=== PATIENT | female | born 1980 | race Hispanic/Latino ===

== ENCOUNTER 2020-03-28 10:25 | Outpatient (CLI) | payer BC, SELFPAY ==
--- NOTE | ~2020-03-28 | US_ITS ---
EXAMINATION: US thyroid EXAM DATE: 03/28/2020 11:19 INDICATION: Nontoxic goiter. TECHNIQUE: Multiple grayscale and Doppler images of the thyroid were obtained (by a technologist who performed the scan) and subsequently reviewed. Individual nodules and recommendations may be reporte d in accordance with TI-RADS system as designated by the 2017 ACR White Paper TI-RADS committee. The re is no prior study for comparison. FINDINGS: The right thyroid lobe measures 3.5 x 1.1 x 0.8 cm, the left measuring 3.9 x 1.2 x 0.9 cm. Mildly dif fusely heterogeneous thyroid echogenicity with expected amount of vascularity. No focal nodule is aguilar ntified or adjacent lymphadenopathy. IMPRESSION: 1. Heterogeneous thyroid parenchyma with normal size. Reviewed, dictated and finalized at location B. 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
== END 2020-03-28 10:26 | disposition home or self-care (01) ==
LOC: ANHIMG 10:44
PROVIDERS: PCP Physician Assistant; Visit Provider Physician Assistant
DX: E04.9 Nontoxic goiter, unspecified (principal)
CPT/HCPCS: 76536

== ENCOUNTER 2020-12-13 14:14 | Emergency (ER) | payer BC, SELFPAY ==
[2020-12-13] VITALS (7 sets, daily range): BP systolic 104–117; BP diastolic 66–74; PULSE 54–80; RESP 13–52; TEMP 36.3; O2SAT 98–100
--- NOTE | ~2020-12-13 | XR_ITS ---
EXAMINATION: XR chest 2V DATE: 12/13/2020 14:52 INDICATION: Chest pain TECHNIQUE: PA and lateral views of the chest are obtained. COMPARISON: None available FINDINGS: The lungs are free of acute opacities. There is no pleural effusion or pneumothorax. The ca rdiomediastinal silhouette is normal. There is mild thoracic spondylosis. Surgical clips in the right upper quadrant are likely from prior cholecystectomy. IMPRESSION: 1. No acute cardiopulmonary abnormality. Reviewed, dictated and finalized at location A.
--- NOTE | 2020-12-13 14:20 | ECG_ITS ---
Measurements Intervals [place] Rate: 63 P: 42 [place]: 140 QRS: 44 QRSD: 77 T: 47 QT: 402 QTc: 412 Interpretive Statements SINUS RHYTHM BASELINE WANDER- V3-V4 NORMAL ECG Electronically Signed On 12-13-2020 14:46:10 CDT by Logan Arriola D.O.
[2020-12-13 14:53] LABS: Basophils Percent Auto 0.5 % (0.2-1.2); Eosinophils Absolute Auto 0.1 K/mm3 (0-0.3); Eosinophils Percent Auto 1.4 % (0-4.4); Hematocrit 32.5 % (37.0-47.0); Hemoglobin 10.7 g/dL (12.0-15.0); Immature Granulocyte Absolute 0.03 K/mm3 (0.00-0.031); Immature Granulocyte Percent A 0.4 % (0-0.5); Lymphocytes Absolute Auto 2.31 K/mm3 (0.9-3.2); Lymphocytes Percent Auto 28.7 % (18.3-44.2); Mean Corpuscular HGB Conc 32.9 g/dl (32-36); Mean Corpuscular Hemoglobin 27.6 pg (26-34); Mean Corpuscular Volume 83.8 fl (80-100); Mean Platelet Volume 9.4 fl (7.4-10.4); Monocytes Absolute Auto 0.4 K/mm3 (0.1-0.6); Monocytes Percent Auto 5.5 % (2.6-8.5); Neutrophils Absolute Auto 5.1 K/mm3 (1.3-6.7); Neutrophils Percent Auto 63.5 % (45.5-73.1); Platelet Count Result 487 k/mm3 (150-375); Red Blood Count 3.88 M/mm3 (4.2-5.4); Red Cell Distribution Width 13.6 % (11.5-14.5); White Blood Count 8.1 K/mm3 (4.5-10.0)
[2020-12-13 14:59] LABS: Anion Gap 4 mmol/L (8-16); Blood Urea Nitrogen 16 mg/dL (7-17); Calcium 9.1 mg/dL (8.4-10.2); Carbon Dioxide 24 mmol/L (22-30); Chloride 105 mmol/L (98-107); Estimated CRCL calculation 85 ml/min; Estimated Glomerular Filt Rate > 60; Glucose 98 mg/dL (65-110); Potassium 3.6 mmol/L (3.4-5.0); Sodium 133 mmol/L (137-145)
[2020-12-13 15:04] LABS: INR 0.9; Partial Thromboplastin Time 28.6 SECONDS (22.3-36.8); Prothrombin Time 12.5 Seconds (11.1-14.7)
[2020-12-13 15:16] LABS: Troponin I < 0.012 ng/mL (0.000-0.034)
--- NOTE | 2020-12-13 18:35 | ED.CHESTPAIN ---
HPI - Chest Pain General Chief Complaint: Chest Pain Stated Complaint: cp, sob Time Seen by Provider: 12/13/20 17:23 Source: patient Mode of arrival: ambulatory Limitations: language barrier (Estonian-speaking translation line used) History of Present Illness HPI narrative: Patient with history of thyroid disorder, joint pain and suspected autoimmune disease presenting complaining of chest pain. After further investigation patient is having pain to her chest wall, elbows, knees etc. Patient states that she is being evaluated by her doctor for lupus or other autoimmune disease. Patient states she has been prescribed meloxicam for her symptoms. Patient has not had fever, chills, nausea, vomiting, diarrhea, syncope or palpitations. Patient's pain can be elicited with palpation of these areas. Patient is not short of breath was noticed that the pain to her chest was worsening when she takes breaths. Patient denies smoking. Patient denies calf pain or swelling. Patient has been on oral control pills. Patient states that she needs a work note as she got off work today. Related Data Allergies Allergy/AdvReac Type Severity Reaction Status Date / Time No Known Allergies Allergy Verified 12/13/20 18:08 Review of Systems Review of Systems: CONSTITUTIONAL: Denies fever, chills, or sweats. EYES: Denies visual changes, redness, or discharge. ENT: Denies rhinorrhea, congestion, sore throat, or otalgia. CARDIOVASCULAR: Reports chest wall pain denies palpitations, or edema. RESPIRATORY: Denies cough or dyspnea. GASTROINTESTINAL: Denies abdominal pain, nausea, vomiting, or diarrhea. GENITOURINARY: Denies dysuria or hematuria. SKIN: Denies rash or itching. MUSCULOSKELETAL: Reports joint pain denies back pain or myalgia. NEUROLOGIC: Denies headache, numbness, dizziness, or weakness. PSYCHIATRIC: Denies anxiety or depression. Exam Narrative: GENERAL: Well-appearing, well-nourished, and in no acute distress. HEAD: Normocephalic, atraumatic. EYES: PERRLA and EOMI. ENT: Nares clear, no rhinorrhea or epistaxis. Mucous membranes moist. Oropharynx without tonsillar hypertrophy exudate or other lesions. Bilateral TMs pearly garcia nonbulging NECK: Supple. No adenopathy or masses. CHEST: pain reproducible with palpation of chest wall. Clear to auscultation. No respiratory distress. No wheezes rales or rhonchi HEART: Regular rate and rhythm. No murmur heard. Normal peripheral pulses. EXTREMITIES: Normal range of motion. No erythema or increased warmth to joints. No calf tenderness or swelling. No edema. SKIN: Warm, dry, no rash. NEURO: No focal deficits. Alert and oriented x3. PSYCH: Normal mood and affect. Course Vital Signs Vital signs: Vital Signs Temperature 97.4 F L 12/13/20 14:21 Pulse Rate 66 12/13/20 14:21 Respiratory Rate 20 12/13/20 14:21 Blood Pressure 117/74 12/13/20 14:21 Pulse Oximetry 100 12/13/20 14:21 Temperature 97.4 F L 12/13/20 14:21 Pulse Rate 70 12/13/20 18:15 Respiratory Rate 19 12/13/20 18:15 Blood Pressure 104/66 12/13/20 18:13 Pulse Oximetry 98 12/13/20 18:15 MDM - Chest Pain MDM Narrative Medical decision making narrative: Patient is not having cardiac chest pain. Patient is having chest wall tenderness. Patient is under investigation for autoimmune conditions. Patient has meloxicam prescribed and states that her pain is the same as in the previous however just intensified. Patient's troponin was negative. Patient EKG was normal. Patient does not want to stay for delta troponin. Patient would like work note and to be discharged home. Patient vitals are stable and blood work is appropriate for discharge. Lab Data Result diagrams: 12/13/20 14:34 12/13/20 14:34 Labs: Lab Results 12/13/20 12/13/20 12/13/20 Range/Units 14:34 14:34 14:34 WBC 8.1 (4.5-10.0) K/mm3 RBC 3.88 L (4.2-5.4) M/mm3 Hgb 10.7 L (12.0-15.0) g/dL Hct
== END 2020-12-13 19:09 | disposition home or self-care (01) ==
PROVIDERS: Emergency Medicine; Emergency Provider Emergency Medicine; PCP Physician Assistant
DX: R07.89 Other chest pain (principal); M25.522 Pain in left elbow; M25.521 Pain in right elbow; M25.562 Pain in left knee; M25.561 Pain in right knee; E07.9 Disorder of thyroid, unspecified
CPT/HCPCS: 36415; 71046; 80048; 84484; 85025; 85610; 85730; 93005; 99284

== ENCOUNTER 2021-01-31 13:01 | Emergency (ER) | payer BC, SELFPAY ==
[2021-01-31 13:25] VITALS: BP 121/80; PULSE 70; RESP 16; TEMP 37.6; O2SAT 99
--- NOTE | 2021-01-31 14:55 | ED.GENADULT ---
HPI - General Adult General Chief complaint: Upper Respiratory Infection Stated complaint: wants COVID swab Time Seen by Provider: 01/31/21 13:38 Source: patient Mode of arrival: ambulatory Limitations: language barrier (language translation line used) History of Present Illness HPI narrative: Patient presents complaining of dry cough, headache, body aches, chills over the past 2 days. Patient reports that she has been vaccinated with Pfizer. She however reports that she has had 4 close contacts at work become Covid positive and other people at work are becoming ill as well. Patient reports that her daughter as well as her granddaughters have developed the same symptoms as her. Patient reports that she saw her primary care provider today and they directed him to the emergency department to be tested for Covid. Patient denies nausea, vomiting, chest pain, shortness of breath, syncope or any other emergent symptoms. Patient reports she has been taking Tylenol and honey cough syrup for her symptoms. Related Data Home Medications Medication Instructions Recorded Confirmed duloxetine mg PO 01/31/21 01/31/21 levothyroxine [Euthyrox] 01/31/21 tramadol mg 01/31/21 Allergies Allergy/AdvReac Type Severity Reaction Status Date / Time No Known Allergies Allergy Verified 01/31/21 13:44 Review of Systems Review of Systems: CONSTITUTIONAL: Reports body aches chills Denies fever or sweats. EYES: Denies visual changes, redness, or discharge. ENT: Reports rhinorrhea, congestion, sore throat denies otalgia. CARDIOVASCULAR: Denies chest pain, palpitations, or edema. RESPIRATORY: Reports dry cough denies dyspnea. GASTROINTESTINAL: Denies abdominal pain, nausea, vomiting, or diarrhea. GENITOURINARY: Denies dysuria or hematuria. SKIN: Denies rash or itching. MUSCULOSKELETAL: Denies back pain, myalgia, or joint pain NEUROLOGIC: Reports headache Denies numbness, dizziness, or weakness. PSYCHIATRIC: Denies anxiety or depression. Exam Narrative: GENERAL: Well-appearing, well-nourished.No toxic. HEAD: Normocephalic, atraumatic. EYES: PERRLA and EOMI. ENT: No epistaxis. Bilateral TMs pearly garcia nonbulging NECK: Supple. No adenopathy or masses. No vertebral tenderness or loss of ROM. CHEST: Clear to auscultation. No respiratory distress. No wheezes rales or rhonchi. Dry cough noted during exam. Not tachypnic. HEART: Regular rate and rhythm. Normal peripheral pulses. ABDOMEN: Soft, nondistended, normal active bowel sounds. EXTREMITIES: No acute changes in ROM. No edema. SKIN: Warm, dry, no rash. NEURO: No focal deficits. Alert and oriented x3. PSYCH: Normal mood and affect. Course Vital Signs Vital signs: Vital Signs Temperature 99.6 F 01/31/21 13:25 Pulse Rate 70 01/31/21 13:25 Respiratory Rate 16 01/31/21 13:25 Blood Pressure 121/80 01/31/21 13:25 Pulse Oximetry 99 01/31/21 13:25 Temperature 99.6 F 01/31/21 13:25 Pulse Rate 70 01/31/21 13:25 Respiratory Rate 16 01/31/21 13:25 Blood Pressure 121/80 01/31/21 13:25 Pulse Oximetry 99 01/31/21 13:25 Medical Decision Making MDM Narrative Medical decision making narrative: Discussed Covid PUI discharge instructions. Discussed return emergency department instructions. Patient is not toxic is not hypoxic. Patient's vital signs are stable. Patient discharged home. Vital Signs Vital Signs: Vital Signs Temperature 99.6 F 01/31/21 13:25 Pulse Rate 70 01/31/21 13:25 Respiratory Rate 16 01/31/21 13:25 Blood Pressure 121/80 01/31/21 13:25 Pulse Oximetry 99 01/31/21 13:25 Temperature 99.6 F 01/31/21 13:25 Pulse Rate 70 01/31/21 13:25 Respiratory Rate 16 01/31/21 13:25 Blood Pressure 121/80 01/31/21 13:25 Pulse Oximetry 99 01/31/21 13:25 Lab Data Labs: Lab Results 01/31/21 Range/Units 14:36 SARS-CoV-2 RNA (RT-PCR) Pending Discharge Plan Discharge Clinical Impression: Viral infe
[2021-01-31 15:11] VITALS: BP 115/68; PULSE 78; RESP 15; O2SAT 97
[2021-02-01 17:24] LABS: SARS-CoV-2 RNA PCR Positive
== END 2021-01-31 15:12 | disposition home or self-care (01) ==
LOC: ANHED 14:54
PROVIDERS: Physician Assistant; Emergency Provider Emergency Medicine; PCP Physician Assistant
DX: U07.1 COVID-19 (principal)
CPT/HCPCS: 99283; C9803; U0003; U0005

== ENCOUNTER 2021-08-28 17:51 | Emergency (ER) | payer BC, SELFPAY ==
[2021-08-28 18:53] VITALS: BP 110/86; PULSE 79; RESP 16; TEMP 36.2; O2SAT 100
--- NOTE | 2021-08-28 19:00 | ECG_ITS ---
Measurements Intervals [place] Rate: 73 P: 21 [place]: 152 QRS: 22 QRSD: 85 T: 30 QT: 398 QTc: 440 Interpretive Statements SINUS RHYTHM NO PREVIOUS ECG AVAILABLE FOR COMPARISON Electronically Signed On 08-28-2021 21:44:46 CDT by Bo Vang M.D.
[2021-08-28 19:19] LABS: Basophils Percent Auto 0.4 % (0.2-1.2); Eosinophils Absolute Auto 0.1 K/mm3 (0-0.3); Eosinophils Percent Auto 0.8 % (0-4.4); Hematocrit 31.2 % (37.0-47.0); Hemoglobin 10.6 g/dL (12.0-15.0); Immature Granulocyte Absolute 0.04 K/mm3 (0.00-0.031); Immature Granulocyte Percent A 0.4 % (0-0.5); Lymphocytes Absolute Auto 1.72 K/mm3 (0.9-3.2); Lymphocytes Percent Auto 19.2 % (18.3-44.2); Mean Corpuscular Volume 82.3 fl (80-100); Mean Platelet Volume 9.4 fl (7.4-10.4); Monocytes Absolute Auto 0.5 K/mm3 (0.1-0.6); Monocytes Percent Auto 5.9 % (2.6-8.5); Neutrophils Absolute Auto 6.6 K/mm3 (1.3-6.7); Neutrophils Percent Auto 73.3 % (45.5-73.1); Platelet Count Result 435 k/mm3 (150-375); Red Blood Count 3.79 M/mm3 (4.2-5.4); Red Cell Distribution Width 14.3 % (11.5-14.5)
[2021-08-28 19:29] LABS: Alanine Aminotransferase 19 U/L (6-35); Albumin Level 4.6 g/dL (3.5-5.1); Alkaline Phosphatase 64 U/L (38-126); Anion Gap 9 mmol/L (8-16); Aspartate Amino Transferase 29 U/L (14-36); Bilirubin,Total 0.5 mg/dL (0.2-1.3); Blood Urea Nitrogen 11 mg/dL (7-17); Calcium 8.8 mg/dL (8.4-10.2); Carbon Dioxide 24 mmol/L (22-30); Chloride 103 mmol/L (98-107); Estimated CRCL calculation 116 ml/min; Estimated Glomerular Filt Rate > 60; Glucose 102 mg/dL (65-110); Lipase 95 U/L (23-300); Potassium 3.8 mmol/L (3.4-5.0); Sodium 136 mmol/L (137-145)
[2021-08-28 20:16] LABS: Appearance Urine Clear (Clear); Bilirubin Urine Negative (Negative); Blood Urine 1+ (Negative); Color Urine Yellow (Yellow); Glucose Urine UA Negative (Negative); Ketones Urine Negative (Negative); Leukocyte Esterase Ur Negative LEU/UL (Negative); Nitrate Urine Negative (Negative); Protein Urine Negative (Negative); Urobilinogen Urine 0.2 mg/dL (<2.0)
[2021-08-28 20:19] LABS: Mucus Urine Rare /lpf; Squamous Epithelial Cell Urine Few /hpf (Few); WBC Urine 0-3 /hpf
[2021-08-28 20:21] LABS: Add Urine Microscopic? YES
--- NOTE | 2021-08-28 20:58 | PC.NURSE ---
first call for patient at 2048, no answer second call at 2057, no answer. patient not in bathroom or waiting room
== END 2021-08-28 21:07 | disposition left against medical advice (07) ==
LOC: ANHED 21:05
PROVIDERS: Emergency Medicine; PCP Physician Assistant
DX: R07.1 Chest pain on breathing (principal)
CPT/HCPCS: 36415; 80053; 81001; 81025; 83690; 85025; 93005; 99199

== ENCOUNTER 2021-08-29 09:52 | Emergency (ER) | payer BC, SELFPAY ==
--- NOTE | ~2021-08-29 | XR_ITS ---
EXAMINATION: XR chest 1V portable DATE: 08/29/2021 10:47 INDICATION: Cough and worsening shortness of breath TECHNIQUE: frontal view of the chest was obtained. COMPARISON: Chest radiograph dated 12/13/2020 FINDINGS: The lungs remain clear with no focal airspace opacities, pulmonary edema, pleural effusion or pneumot horax. The cardiomediastinal silhouette is normal. Cholecystectomy clips in right upper quadrant. IMPRESSION: 1. No acute cardiopulmonary disease. Reviewed, dictated and finalized at location B.
[2021-08-29 09:56] VITALS: BP 114/83; PULSE 73; RESP 18; TEMP 36.5; O2SAT 100
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
[2021-08-29 11:00] VITALS: PULSE 66; RESP 24
[2021-08-29] MEDS: IPRATROPIUM BR 0.02% INH SOLN 0.5 MG/2.5 ML VIAL INHALATION (11:00)
[2021-08-29] MEDS: ALBUTEROL SULFATE NEB 2.5 MG/3 ML INH INHALATION (11:00)
[2021-08-29 11:08] VITALS: PULSE 72; RESP 22
[2021-08-29 12:41] VITALS: BP 142/86; PULSE 82; RESP 16; O2SAT 97
== END 2021-08-29 12:42 | disposition home or self-care (01) ==
PROVIDERS: Emergency Provider Nurse Practitioner Family; PCP Physician Assistant
DX: J98.01 Acute bronchospasm (principal); Z77.120 Contact with and (suspected) exposure to mold (toxic)
CPT/HCPCS: 71045; 94640; 96372; 99283; J1100

== ENCOUNTER 2021-09-06 14:35 | Emergency (ER) | payer BC, SELFPAY ==
[2021-09-06] VITALS (17 sets, daily range): BP systolic 99–123; BP diastolic 64–79; PULSE 79–126; RESP 11–27; TEMP 37.2; O2SAT 95–100
--- NOTE | ~2021-09-06 | CT_ITS ---
EXAMINATION: CTA chest PE protocol DATE: 09/06/2021 18:16 INDICATION: Chest pain, shortness of breath, cough TECHNIQUE: Computed tomography angiography (CTA) of the chest was performed with 100 mL Omnipaque-350 intravenous contrast timed to evaluate the pulmonary arteries. Coronal maximum intensity projection 3D-reconstructions were created by the technologist. Automated exposure control and iterative reconst ruction technique were employed. Exam dose: 187.06 mGy-cm total exam DLP. COMPARISON: 08/29/2021 portable AP chest FINDINGS: There is diagnostic contrast enhancement of pulmonary embolism no evidence of pulmonary emb olism. No thoracic aortic aneurysm or dissection. Normal heart size. No pericardial or pleural effusion. No hilar or mediastinal mass lesion or lymphadenopathy. Calcified middle lobe granuloma There are scattered patchy bilateral pulmonary infiltrates involving the bilateral upper and lower lo bes and middle lobe. No suspicious osteolytic or osteoblastic lesions. IMPRESSION: Patchy bilateral pulmonary infiltrates with bilateral pneumonia No evidence of pulmonary embolism Reviewed, dictated and finalized at Location [facility]. Reviewed, dictated and finalized at location A.
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
[2021-09-06 17:16] LABS: Basophils Absolute Auto 0.1 K/mm3 (0.0-0.1); Basophils Percent Auto 0.8 % (0.2-1.2); Eosinophils Absolute Auto 0.1 K/mm3 (0-0.3); Eosinophils Percent Auto 1.6 % (0-4.4); Hematocrit 39.4 % (37.0-47.0); Hemoglobin 12.6 g/dL (12.0-15.0); Immature Granulocyte Absolute 0.06 K/mm3 (0.00-0.031); Immature Granulocyte Percent A 0.7 % (0-0.5); Lymphocytes Absolute Auto 1.48 K/mm3 (0.9-3.2); Lymphocytes Percent Auto 17.1 % (18.3-44.2); Mean Corpuscular Hemoglobin 27.5 pg (26-34); Mean Corpuscular Volume 85.8 fl (80-100); Mean Platelet Volume 9.3 fl (7.4-10.4); Monocytes Absolute Auto 0.9 K/mm3 (0.1-0.6); Neutrophils Percent Auto 69.8 % (45.5-73.1); Platelet Count Result 431 k/mm3 (150-375); Red Blood Count 4.59 M/mm3 (4.2-5.4); Red Cell Distribution Width 14.6 % (11.5-14.5); White Blood Count 8.7 K/mm3 (4.5-10.0)
--- NOTE | 2021-09-06 17:16 | ECG_ITS ---
Measurements Intervals [place] Rate: 98 P: 55 [place]: 139 QRS: 47 QRSD: 78 T: 42 QT: 321 QTc: 410 Interpretive Statements SINUS RHYTHM NORMAL ECG COMPARED TO ECG 08/28/2021 19:04:21 NO SIGNIFICANT CHANGES Electronically Signed On 09-07-2021 13:43:06 CDT by Manoj Mike M.D.
[2021-09-06 17:29] LABS: Alanine Aminotransferase 21 U/L (6-35); Albumin Level 4.5 g/dL (3.5-5.1); Alkaline Phosphatase 68 U/L (38-126); Anion Gap 9 mmol/L (8-16); Aspartate Amino Transferase 28 U/L (14-36); Blood Urea Nitrogen 15 mg/dL (7-17); Calcium 8.8 mg/dL (8.4-10.2); Carbon Dioxide 26 mmol/L (22-30); Chloride 100 mmol/L (98-107); Estimated CRCL calculation 78 ml/min; Estimated Glomerular Filt Rate > 60; Glucose 101 mg/dL (65-110); Sodium 135 mmol/L (137-145)
[2021-09-06] MEDS: SODIUM CHLORIDE 0.9% IV 1,000 ML 999 ML IV CONT (17:43)
[2021-09-06 17:51] LABS: SARS-CoV-2 RNA PCR Negative
[2021-09-06 18:01] LABS: Troponin I < 0.012 ng/mL (0.000-0.034)
[2021-09-06] MEDS: ALBUTEROL SULFATE NEB 2.5 MG/3 ML INH INHALATION (18:48)
[2021-09-06] MEDS: IPRATROPIUM BR 0.02% INH SOLN 0.5 MG/2.5 ML VIAL INHALATION (18:48)
== END 2021-09-06 19:26 | disposition home or self-care (01) ==
PROVIDERS: Emergency Provider Nurse Practitioner Family; PCP Physician Assistant
DX: J18.9 Pneumonia, unspecified organism (principal)
CPT/HCPCS: 36415; 71275; 80053; 81025; 84484; 85025; 93005; 94640; 96361; 96365; 99284; C9803; J0696; J7030; Q9967; U0003; U0005

== ENCOUNTER 2022-04-27 13:19 | Emergency (ER) | payer BC, SELFPAY ==
--- NOTE | ~2022-04-27 | XR_ITS ---
EXAMINATION: XR knee RT min 4V DATE: 04/27/2022 15:16 INDICATION: Right knee pain. TECHNIQUE: 4 views of right knee were obtained. COMPARISON: None. FINDINGS: Bone alignment is normal. No fracture. There is mild osteoarthritis of medial compartment c haracterized by tiny osteophytes. No joint space narrowing. No knee joint effusion. IMPRESSION: 1. Mild right knee osteoarthritis. Reviewed, dictated and finalized at location A. HEMIST
[2022-04-27 13:25] VITALS: BP 117/72; PULSE 66; RESP 15; TEMP 36.6; O2SAT 100
--- NOTE | 2022-04-27 15:47 | ED.LOWEXIN ---
HPI - Extremity Injury (Lower) General Chief Complaint: Extremity Injury, Lower Stated Complaint: Bilateral knee pain Time Seen by Provider: 04/27/22 14:54 Source: patient Mode of arrival: ambulatory Limitations: no limitations and language barrier History of Present Illness HPI Narrative: Patient is a 41-year-old female who presents the ED with report of right knee pain. Patient is primarily Somali-speaking. 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 Patient reports she developed pain in her right knee at work yesterday, which worsened throughout the night into today. She tried taking Tylenol this morning without relief. Pain worse with movement, flexion of R knee. Pain worst medially. Patient denies any fall or injury. Denies any numbness/tingling. Related Data Allergies Allergy/AdvReac Type Severity Reaction Status Date / Time No Known Allergies Allergy Verified 04/27/22 14:47 Review of Systems Review of Systems: CONSTITUTIONAL: Denies fever, chills, or sweats. MUSCULOSKELETAL: See HPI. NEUROLOGIC: Denies tingling, numbness, or weakness. All systems reviewed & are unremarkable except as noted in HPI and below PMFSH Past Medical History Medical History (Updated 04/27/22 @ 17:37 by Mary Alegre PA-C) No pertinent past medical history Surgical History Surgical History (Updated 04/27/22 @ 17:37 by Mary Alegre PA-C) No pertinent past surgical history Social History Social History (Updated 04/27/22 @ 17:37 by Mary Alegre PA-C) Smoking status: Never smoker Exam Narrative: GENERAL: Well appearing, well-nourished, non-toxic, in no acute distress. HEAD: Normocephalic, atraumatic. NECK: Supple. No adenopathy, no masses. RESPIRATORY: Airway patent, respirations nonlabored. CARDIOVASCULAR: Regular rate and rhythm without murmurs, rubs, or gallops. Pedal pulses 2+ and equal bilaterally. MUSCULOSKELETAL: Mild limited flexion ROM of R knee, full extension, no focal swelling. TTP diffusely throughout joint spaces of R knee, worst medially. Discomfort with valgus stress testing. Sensation intact. No edema. No calf tenderness. SKIN: Warm, dry, normal color. No rashes. No overlying skin changes of right knee. No redness or warmth surrounding right knee. NEURO: A&O X3. Speech clear. Cranial nerves II-XII grossly intact. No ataxic movements. PSYCHIATRIC: Appropriate mood and affect. Normal interaction. Course Vital Signs Vital signs: Vital Signs Temperature 98 F 04/27/22 13:25 Pulse Rate 66 04/27/22 13:25 Respiratory Rate 15 04/27/22 13:25 Blood Pressure 117/72 04/27/22 13:25 Pulse Oximetry 100 04/27/22 13:25 Oxygen Delivery Room Air 04/27/22 13:25 Temperature 98 F 04/27/22 13:25 Pulse Rate 66 04/27/22 13:25 Respiratory Rate 15 04/27/22 13:25 Blood Pressure 117/72 04/27/22 13:25 Pulse Oximetry 100 04/27/22 13:25 Oxygen Delivery Room Air 04/27/22 13:25 MDM - Extremity Injury (Lower) MDM Narrative Medical decision making narrative: Patient's injury is consistent with musculoskeletal etiology. No signs of neurologic or vascular compromise on physical examination. Compartments are soft without signs of compartment syndrome. XR showing OA, no joint effusion, dislocation, or fx. No redness or warmth over knee, patient still with fairly decent ROM of knee, very low suspicion for septic joint. VSS. Afebrile. No calf tenderness or lower extremity swelling, low risk Wells, low suspicion for DVT. Patient is felt to be stable for discharge home and further outpatient management and treatment. Patient placed in knee immobilizer, given crutches, will provide orthopedic information for follow-up for continued pain. Naproxen sent to pharmacy. Given reasons to return. Medical Records Attestation: I reviewed the patient's medical records. Imaging Data Attestation: I personally reviewed and interpreted this imaging study as follows:
[2022-04-27] MEDS: KETOROLAC (*BKC) 60 MG/2 ML VIAL IM (16:26)
[2022-04-27 17:38] VITALS: BP 106/76; PULSE 63; RESP 18; O2SAT 99
== END 2022-04-27 18:11 | disposition home or self-care (01) ==
PROVIDERS: Emergency Provider Physician Assistant; PCP Physician Assistant
DX: M25.561 Pain in right knee (principal); M17.11 Unilateral primary osteoarthritis, right knee
CPT/HCPCS: 73564; 96372; 99283; J1885

== ENCOUNTER 2022-10-29 20:48 | Emergency (ER) | payer OTHER, SELFPAY ==
--- NOTE | ~2022-10-29 | XR_ITS ---
EXAM: XR knee RT min 4V DATE: 10/29/2022 21:21 HISTORY: right knee pain SINCE THURSDAY . COMPARISON: 04/27/2022. FINDINGS: Normal mineralization. No fracture or dislocation. No lytic or blastic lesion. Mild medial compartment osteoarthritis. No erosion or periosteal change. Soft tissues within normal limits. IMPRESSION: No acute osseous finding in the right knee. Reviewed, dictated and finalized at location K.
[2022-10-29 20:50] VITALS: BP 121/74; PULSE 83; RESP 15; TEMP 36.5; O2SAT 100
[2022-10-29] MEDS: ACETAMINOPHEN 500 MG TABLET 1000 MG PO (22:04)
[2022-10-29] MEDS: KETOROLAC (*BKC) 60 MG/2 ML VIAL IM (22:04)
--- NOTE | 2022-10-29 22:10 | ED.LOWEXIN ---
HPI - Extremity Injury (Lower) General Chief Complaint: Extremity Injury, Lower Stated Complaint: right knee pain Time Seen by Provider: 10/29/22 21:12 Source: patient Mode of arrival: ambulatory Limitations: no limitations and language barrier History of Present Illness HPI Narrative: Patient is a 42-year-old female who presents to the ED with report of right knee pain. Patient is primarily Chilean-speaking. 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 She reports having pain since Thursday in her right knee. She denies any injury or fall. She reports having similar pain in the past and was told she had arthritis. She has been taking naproxen and Tylenol without much relief. Denies any significant swelling. Denies numbness or tingling. Denies fevers. Related Data Allergies Allergy/AdvReac Type Severity Reaction Status Date / Time No Known Allergies Allergy Verified 05/08/22 11:01 Review of Systems Review of Systems: CONSTITUTIONAL: Denies fever, chills, or sweats. MUSCULOSKELETAL: See HPI. NEUROLOGIC: Denies tingling, numbness, or weakness. All systems reviewed & are unremarkable except as noted in HPI and below PMFSH Past Medical History Medical History Anemia Breast cyst No pertinent past medical history Thyroid disorder Surgical History Surgical History History of appendectomy History of History of cholecystectomy No pertinent past surgical history Family History Family History Daughter Diabetes mellitus Social History Social History Smoking status: Never smoker Alcohol intake: never Substance use type: does not use Living arrangements: with family Occupation/Education: unemployed Exam Narrative: GENERAL: Well appearing, well-nourished, non-toxic, in no acute distress. HEAD: Normocephalic, atraumatic. NECK: Supple. No adenopathy, no masses. RESPIRATORY: Airway patent, respirations nonlabored. CARDIOVASCULAR: Regular rate and rhythm without murmurs, rubs, or gallops. Pedal pulses 2+ and equal bilaterally. MUSCULOSKELETAL: No gross deformities. No edema. No calf tenderness. Limited range of motion of right knee flexion due to pain, discomfort reported with full extension. Tenderness to palpation diffusely throughout inferior joint spaces. No erythema or warmth noted to right knee. SKIN: Warm, dry, normal color. No rashes. NEURO: A&O X3. Speech clear. Cranial nerves II-XII grossly intact. Steady gait. No ataxic movements. PSYCHIATRIC: Appropriate mood and affect. Normal interaction. Course Vital Signs Vital signs: Vital Signs Temperature 97.7 F 10/29/22 20:50 Pulse Rate 83 10/29/22 20:50 Respiratory Rate 15 10/29/22 20:50 Blood Pressure 121/74 10/29/22 20:50 Pulse Oximetry 100 10/29/22 20:50 Oxygen Delivery Room Air 10/29/22 20:50 Temperature 97.7 F 10/29/22 20:50 Pulse Rate 83 10/29/22 20:50 Respiratory Rate 15 10/29/22 20:50 Blood Pressure 121/74 10/29/22 20:50 Pulse Oximetry 100 10/29/22 20:50 Oxygen Delivery Room Air 10/29/22 20:50 MDM - Extremity Injury (Lower) MDM Narrative Medical decision making narrative: Patient's injury is consistent with musculoskeletal etiology/knee strain. No signs of neurologic or vascular compromise on physical examination. Compartments are soft without signs of compartment syndrome. XR of right knee without abnormalities, no joint effusion/bursitis. Pain is consistent with exam. Patient feeling better with supportive therapy. She is able to ambulate. Andriy bandage applied in the ED. Patient is felt to be stable for discharge home and further outpatient management and treatment. Advised patient to follow-up with orthopedics for further e
== END 2022-10-29 22:53 | disposition home or self-care (01) ==
PROVIDERS: Emergency Provider Physician Assistant; PCP Physician Assistant
DX: S86.911A Strain of unspecified muscle(s) and tendon(s) at lower leg level, right leg, initial encounter (principal); X58.XXXA Exposure to other specified factors, initial encounter
CPT/HCPCS: 73564; 96372; 99283; A9270; J1885

== ENCOUNTER 2022-11-26 06:41 | Outpatient (CLI) | payer OTHER, SELFPAY ==
--- NOTE | ~2022-11-26 | MR_ITS ---
MRI of the right knee Clinical history: Pain Technique: Coronal proton density and proton density-weighted images, sagittal proton-density and T2 fat-sat images, and axial proton-density fat-saturated images were acquired. Findings: Anterior and posterior cruciate ligaments are intact. Medial collateral ligament and the la teral collateral ligament conflux are intact. Popliteus tendon is intact. There is probable linear intrasubstance degenerative signal in the medial meniscus. No definite media l or lateral meniscal tear identified. Articular cartilage is well preserved in all 3 joint compartments. Bone marrow signals are unremarkab le. Extensor mechanism is intact. No significant joint effusion or Painter's cyst. Impression: No significant abnormality seen. Probable linear intrasubstance degenerative signal in the medial men iscus rather than tear. Reviewed, dictated and finalized at [facility]. Impression: No significant abnormality seen. Probable linear intrasubstance degenerative si gnal in the medial meniscus rather than tear.
[2022-11-26 08:25] LABS: CRP < 0.5 mg/dL (<1.0); Uric Acid 3.8 mg/dL (2.5-7.5)
[2022-11-26 08:34] LABS: Erythrocyte Sedimentation Rate 23 mm/hr (0-20)
== END 2022-11-26 06:42 | disposition home or self-care (01) ==
PROVIDERS: PCP Physician Assistant; Visit Provider Nurse Practitioner
DX: M25.561 Pain in right knee (principal)
CPT/HCPCS: 36415; 73721; 84550; 85652; 86140

== ENCOUNTER 2023-03-10 13:12 | Emergency (ER) | payer OTHER, SELFPAY ==
--- NOTE | ~2023-03-10 | XR_ITS ---
EXAMINATION: XR chest 2V DATE: 03/10/2023 17:14 INDICATION: Shortness of breath. COVID-19 positive. TECHNIQUE: Frontal and lateral views of the chest were obtained. COMPARISON: Chest single view 08/29/2021, chest CT 09/06/2021 FINDINGS: There is no pneumonia, pleural effusion, or pneumothorax. The heart size is normal. Surgica l clips in the right upper quadrant are likely from cholecystectomy. IMPRESSION: 1. No acute cardiopulmonary disease. Reviewed, dictated and finalized at location A. LER CRANE OPERATOR
[2023-03-10 13:21] VITALS: BP 102/52; PULSE 91; RESP 18; TEMP 36.3; O2SAT 100
--- NOTE | 2023-03-10 17:14 | ED.URI ---
HPI - URI/Sore Throat General Chief Complaint: Upper Respiratory Infection Stated Complaint: diff breathing Time Seen by Provider: 03/10/23 16:55 Source: patient Mode of arrival: ambulatory Limitations: no limitations and language barrier History of Present Illness HPI Narrative: Patient is a 42 y/o female, with pmh of fibromyalgia, who presents to the ED with c/o SOB. Patient is primarily Tam[place]-speaking. 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 Patient reports she has been sick for the last 10 days with multiple sx's, cough, congestion, ST, N/V, fatigue, myalgias, intermittent fevers. She was diagnosed with bronchitis last week and Rx'd an Albuterol inhaler. She has been using this but denies relief. C/o persistent SOB. She was seen at a hospital again 2 days ago and tested positive for COVID 19. Patient is vaccinated for COVID. Patient presents today with ongoing sx's. C/o persistent nausea currently. Denies abdominal pain. Related Data Home Medications Medication Instructions Recorded Confirmed levothyroxine 100 mcg capsule 100 mcg PO DAILY 11/20/22 01/27/23 lansoprazole 30 mg capsule,delayed 30 mg PO DAILY 12/08/22 01/27/23 release sertraline 100 mg tablet 100 mg PO DAILY 01/27/23 01/27/23 Allergies Allergy/AdvReac Type Severity Reaction Status Date / Time No Known Allergies Allergy Verified 03/10/23 13:17 Review of Systems Review of Systems: CONSTITUTIONAL: See HPI. ENT: See HPI. CARDIOVASCULAR: See HPI. RESPIRATORY: See HPI. GASTROINTESTINAL: See HPI. GENITOURINARY: Denies dysuria or hematuria. MUSCULOSKELETAL: Reports myalgia. NEUROLOGIC: Denies headache, dizziness, numbness, or weakness. All systems reviewed & are unremarkable except as noted in HPI and below PMFSH Past Medical History Medical History Anemia Breast cyst Fibromyalgia No pertinent past medical history Thyroid disorder Surgical History Surgical History History of appendectomy History of History of cholecystectomy Family History Family History Daughter Diabetes mellitus Social History Social History Smoking status: Never smoker Alcohol intake: never Substance use type: does not use Lack of Transportation: No Lack of Food: Never True Current Housing: I Have Housing Concerned About Future Housing: No Difficulty Paying Gas/Electric Bills: No Difficulty Paying for Meds: No Currently Unemployed: No Education: Grade School Difficulty w/ Childcare or Family Care: No Living arrangements: with family 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 HEAD: Normocephalic, atraumatic. RESPIRATORY: Airway patent, respirations nonlabored. Clear to auscultation bilaterally, no rales, rhonchi, wheezing. No significant focal lung sounds. CARDIOVASCULAR: Regular rate and rhythm without murmurs, rubs, or gallops. Radial pulses 2+ bilaterally. ABDOMINAL: Soft, no tenderness throughout abdomen, nondistended. Normoactive BS. MUSCULOSKELETAL: Moves all extremities. No gross deformities. SKIN: Warm, dry, normal color. NEURO: A&O X3. Speech clear. Cranial nerves II-XII grossly intact. Steady gait. No ataxic movements. PSYCHIATRIC: Appropriate mood and affect. Normal interaction. Course Vital Signs Vital signs: Vital Signs Temperature 97.4 F L 03/10/23 13:21 Pulse Rate 91 03/10/23 13:21 Respiratory Rate 18 03/10/23 13:21 Blood Pressure 102/52 L 03/10/23 13:21 Pulse Oximetry 100 03/10/23 13:21 Oxygen Delivery Room Air 03/10/23 13:21 Temperature 97.4 F L 03/10/23 13:
--- NOTE | 2023-03-10 17:17 | ECG_ITS ---
Measurements Intervals [place] Rate: 98 P: 44 ME: 131 QRS: 48 QRSD: 76 T: 52 QT: 315 QTc: 404 Interpretive Statements SINUS RHYTHM NORMAL ECG COMPARED TO ECG 09/06/2021 17:49:45 NO SIGNIFICANT CHANGES Electronically Signed On 03-11-2023 10:34:17 CUSTOMER EXPERIENCE ANALYST by Manoj Mike M.D.
[2023-03-10] MEDS: SODIUM CHLORIDE 0.9% IV 1,000 ML 999 ML IV CONT (17:42)
[2023-03-10] MEDS: BENZONATATE 100 MG CAPSULE 200 MG PO (17:42)
[2023-03-10] MEDS: ONDANSETRON INJ 4 MG/2 ML VIAL IV PUSH (17:42)
[2023-03-10] MEDS: ACETAMINOPHEN 500 MG TABLET 1000 MG PO (17:42)
[2023-03-10 17:56] LABS: Basophils Absolute Auto 0.1 K/mm3 (0.0-0.1); Basophils Percent Auto 0.4 % (0.2-1.2); Eosinophils Absolute Auto 0.1 K/mm3 (0-0.3); Eosinophils Percent Auto 0.4 % (0-4.4); Hematocrit 37.7 % (37.0-47.0); Hemoglobin 12.1 g/dL (12.0-15.0); Immature Granulocyte Absolute 0.06 K/mm3 (0.00-0.031); Immature Granulocyte Percent A 0.4 % (0-0.5); Lymphocytes Absolute Auto 1.47 K/mm3 (0.9-3.2); Lymphocytes Percent Auto 10.7 % (18.3-44.2); Mean Corpuscular HGB Conc 32.1 g/dl (32-36); Mean Corpuscular Hemoglobin 27.7 pg (26-34); Mean Corpuscular Volume 86.3 fl (80-100); Mean Platelet Volume 9.4 fl (7.4-10.4); Monocytes Absolute Auto 0.6 K/mm3 (0.1-0.6); Monocytes Percent Auto 4.7 % (2.6-8.5); Neutrophils Absolute Auto 11.5 K/mm3 (1.3-6.7); Neutrophils Percent Auto 83.4 % (45.5-73.1); Platelet Count Result 499 k/mm3 (150-375); Red Blood Count 4.37 M/mm3 (4.2-5.4); Red Cell Distribution Width 12.6 % (11.5-14.5); White Blood Count 13.8 K/mm3 (4.5-10.0)
[2023-03-10 18:03] LABS: Alanine Aminotransferase 18 U/L (6-35); Albumin Level 4.4 g/dL (3.5-5.1); Alkaline Phosphatase 78 U/L (38-126); Anion Gap 11 mmol/L (8-16); Aspartate Amino Transferase 27 U/L (14-36); Bilirubin,Total 0.9 mg/dL (0.2-1.3); Blood Urea Nitrogen 13 mg/dL (7-17); Calcium 9.6 mg/dL (8.4-10.2); Carbon Dioxide 22 mmol/L (22-30); Chloride 104 mmol/L (98-107); Estimated CRCL calculation 80 ml/min; Estimated Glomerular Filt Rate > 60; Glucose 102 mg/dL (65-110); Potassium 3.7 mmol/L (3.4-5.0); Sodium 137 mmol/L (137-145)
[2023-03-10 18:13] LABS: Prothrombin Time 14.1 Seconds (11.1-14.7)
[2023-03-10 18:14] LABS: Partial Thromboplastin Time 38.9 SECONDS (22.3-36.8); Troponin I < 0.012 ng/mL (0.000-0.034)
[2023-03-10 18:17] LABS: D Dimer < 0.27 ug/mL (<0.48)
== END 2023-03-10 19:26 | disposition home or self-care (01) ==
PROVIDERS: Emergency Provider Physician Assistant; PCP Physician Assistant
DX: U07.1 COVID-19 (principal); R06.02 Shortness of breath; R11.2 Nausea with vomiting, unspecified; D64.9 Anemia, unspecified
CPT/HCPCS: 36415; 71046; 80053; 84484; 85025; 85380; 85610; 85730; 93005; 96361; 96374; 99284; A9270; J2405; J7030

== ENCOUNTER 2023-07-09 08:24 | Outpatient (CLI) | payer OTHER, SELFPAY ==
--- NOTE | ~2023-07-09 | XR_ITS ---
EXAMINATION: XR thoracic spine 3V DATE: 07/09/2023 08:46 INDICATION: Thoracic back pain. TECHNIQUE: 3 views of thoracic spine were obtained. COMPARISON: Chest 2 views 03/10/2023 FINDINGS: There is 8 degrees dextrocurvature of thoracic spine. There is mild chronic anterior wedgin g of 3 midthoracic vertebral bodies. There are endplate osteophytes at multiple levels. There is mild ly decreased disc height at T8-T9. There is multilevel facet joint osteoarthritis. Surgical clips in the right upper quadrant are likely from cholecystectomy. IMPRESSION: 1. Mild thoracic spondylosis. Reviewed, dictated and finalized at location A.
== END 2023-07-09 08:25 | disposition home or self-care (01) ==
LOC: ANHIMG 08:26
PROVIDERS: PCP Physician Assistant; Visit Provider Physician Assistant
DX: M47.894 Other spondylosis, thoracic region (principal)
CPT/HCPCS: 72072

== ENCOUNTER 2023-12-17 01:55 | Day surgery (SDC) | payer OTHER, SELFPAY ==
--- NOTE | 2023-10-07 09:39 | SUR.PREOP ---
PATIENT CALLED ON 10/05 REGARDING SCHEDULING HER PROCEDURE APPOINTMENT. PT WAS UNABLE TO KEEP HER APPOINTMENT YESTERDAY DUE TO RIDE ISSUES. PATIENT RESCHEDULED TO 12/16 FROM 10/05. AN QUARANTINE OFFICER WAS USED IN RESCHEDULING PATIENT.
--- NOTE | 2023-11-23 13:51 | PC.NURSE ---
Called patient using ground crew linesman (ID#[id number]). States no change in health history or medications since last PAT call on 09/24/23. Aware of new date and time. Patient has no questions at this time.
[2023-12-17] MEDS: LACTATED RINGERS 1,000 ML 150 ML IV CONT (09:48)
[2023-12-17 09:49] VITALS: BP 116/86; PULSE 78; RESP 16; TEMP 36; O2SAT 98; BMI 27.1
--- NOTE | 2023-12-17 10:08 | WPDANESEPPF ---
Anes - Initial Pre Proc Eval Procedure: Operation Date: 12/17/23 10:30 Proposed Procedures p Colonoscopy - Jose J Pool MD Date/Time: 12/17/23 10:08 Surgeon: Jose J Pool MD Pre Op Diagnosis: Diarrhea Patient Data Age: 43 Gender: F Height: 1.57 m Weight: 67.2 kg Last Vital Signs Temp 96.8 F L 12/17/23 09:49 Pulse 78 12/17/23 09:49 Resp 16 12/17/23 09:49 BP 116/86 12/17/23 09:49 Pulse Ox 98 12/17/23 09:49 O2 Del Method Room Air 12/17/23 09:49 Allergies Allergy/AdvReac Type Severity Reaction Status Date / Time No Known Allergies Allergy Verified 12/17/23 09:34 Home Medications Medication Instructions Recorded Confirmed Type amitriptyline 75 mg tablet 75 mg PO HS 09/24/23 11/23/23 History levothyroxine 88 mcg tablet 88 mcg PO DAILY 09/24/23 11/23/23 History Patient hx anesthesia problems: none Family hx anesthesia problems: none Results Review: All pre-operative results and documents have been reviewed as part of the pre-operative evaluation. [facility] Past Medical History Medical History Anemia Breast cyst Fibromyalgia No pertinent past medical history Thyroid disorder Surgical History Surgical History History of appendectomy History of History of cholecystectomy Family History Family History Daughter Diabetes mellitus Social History Social History Smoking status: Never smoker Alcohol intake: never Substance use: never Substance use type: does not use Lack of Transportation: No Lack of Food: Never True Current Housing: I Have Housing Concerned About Future Housing: No Difficulty Paying Gas/Electric Bills: No Difficulty Paying for Meds: No Currently Unemployed: No Education: Grade School Difficulty w/ Childcare or Family Care: No Living arrangements: with family 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 Hx via video spanish interpreter/translator Jake. Pt having procedure due to change in bowel habits. Hypothyroidism. Informed Consent: The patient's anesthetic plan and its attendant risks and benefits were discussed with the patient/family/POA. Questions were solicited and answers provided to the satisfaction of the patient/family/POA.
--- NOTE | 2023-12-17 10:36 | PM.HPGS ---
History of Present Illness History of Present Illness Consent: Risks, benefits, and alternatives have been discussed and questions answered. Patient agrees to proceed with procedure. Chief complaint: Diarrhea Narrative: Sigrid Gregory is a 43 year old female here for first colonoscopy, intermittent diarrhea, also bloating and epigastric pain Review of Systems Review of Systems: All systems reviewed & are unremarkable except as noted in HPI and below PMFSH Past Medical History Medical History (Updated 12/17/23 @ 10:46 by Jose J Pool MD) Alternating constipation and diarrhea Anemia Bloating Breast cyst Dyspepsia Fibromyalgia No pertinent past medical history Thyroid disorder Surgical History Surgical History History of appendectomy History of History of cholecystectomy Family History Family History Daughter Diabetes mellitus Social History Social History Smoking status: Never smoker Alcohol intake: never Substance use: never Substance use type: does not use Lack of Transportation: No Lack of Food: Never True Current Housing: I Have Housing Concerned About Future Housing: No Difficulty Paying Gas/Electric Bills: No Difficulty Paying for Meds: No Currently Unemployed: No Education: Grade School Difficulty w/ Childcare or Family Care: No Living arrangements: with family 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: No Meds Home Medications and Allergies Home Medications Medication Instructions Recorded Confirmed Type amitriptyline 75 mg tablet 75 mg PO HS 09/24/23 11/23/23 History levothyroxine 88 mcg tablet 88 mcg PO DAILY 09/24/23 11/23/23 History Allergies Allergy/AdvReac Type Severity Reaction Status Date / Time No Known Allergies Allergy Verified 12/17/23 09:34 Vital Signs Vital Signs - 24 hr 12/17/23 09:49 Temperature 96.8 F L Pulse Rate 78 Respiratory Rate 16 Blood Pressure 116/86 Pulse Oximetry 98 Oxygen Delivery Room Air Exam Const: General: comfortable and no acute distress HENMT: Face/Nose/Sinus: Normal nares present Eyes: General: appearance normal, both eyes and all related structures Neck: Neck: no JVD Resp: Auscultation: clear to auscultation bilaterally Cardio: Rate: regular rate Rhythm: regular rhythm GI: Inspection: non-distended GI Palp: Yes Soft to palpation Skin: General skin exam: normal color Neuro: General: gait normal Speech: normal speech Extrem: General: normal to inspection Psych: Mental Status: mental status grossly normal Assessment and Plan Assessment and plan (1) Alternating constipation and diarrhea: Code(s): R19.8 - Other specified symptoms and signs involving the digestive system and abdomen Status: Acute Assessment and Plan: colonoscopy (2) Dyspepsia: Code(s): R10.13 - Epigastric pain Status: Acute Assessment and Plan: will schedule egd at another time (3) Bloating: Code(s): R14.0 - Abdominal distension (gaseous) Status: Acute
[2023-12-17 10:51] VITALS: BP 97/62; PULSE 66; RESP 13; O2SAT 100
[2023-12-17 11:01] VITALS: BP 110/69; PULSE 62; RESP 16; O2SAT 100
[2023-12-17 11:11] VITALS: BP 112/72; PULSE 61; RESP 20; O2SAT 100
--- NOTE | 2023-12-17 11:12 | SUR.PHASEII ---
Environmental Engineering Aide used for discharge instructions, Art #[id number]. Per dopeman, patient verbalized understanding regarding findings from procedure, follow up, etc.
== END 2023-12-17 11:28 | disposition home or self-care (01) ==
PROVIDERS: PCP Physician Assistant; Referring Provider Physician Assistant; Visit Provider Internal Medicine Gastroenterology
PROC: 0DJD8ZZ Inspection of Lower Intestinal Tract, Via Natural or Artificial Opening Endoscopic (ICD-10-PCS; CPT 45378; principal; 2023-12-17 10:30)
DX: R19.7 Diarrhea, unspecified (principal); K64.8 Other hemorrhoids; D64.9 Anemia, unspecified; E07.9 Disorder of thyroid, unspecified; Z98.890 Other specified postprocedural states; Z90.49 Acquired absence of other specified parts of digestive tract
CPT/HCPCS: 45380; 88305; J2704; J7120